=== PATIENT | male | born 1995 | race Caucasian/White ===

== ENCOUNTER 2020-04-06 04:36 | Emergency (ER) | payer SELFPAY ==
[~2020-04-06] VITALS: Ht 182.9 cm; Wt 82.6 kg
[2020-04-06 04:40] VITALS: BP 131/85
== END 2020-04-06 05:15 | disposition home or self-care (01) ==
LOC: ED 05:06
DX: K02.9 Dental caries, unspecified (principal); K08.89 Other specified disorders of teeth and supporting structures; F17.290 Nicotine dependence, other tobacco product, uncomplicated
CPT/HCPCS: 99283